=== PATIENT | male | born 1935 | race Caucasian/White ===

== ENCOUNTER 2017-10-09 10:06 | Emergency (ER) | payer OTHER ==
[2017-10-09 10:13] VITALS: RESP 18
--- NOTE | 2017-10-09 10:24 | CPEKG ---
Heart Rate: 85 RR Interval: 706 P-R Interval: 176 QRSD Interval: 80 QT Interval: 336 QTC Interval: 400 P [place]: -10 QRS [place]: -27 T Wave [place]: 47 EKG Severity - ABNORMAL ECG - EKG Impression: SINUS RHYTHM EKG Impression: PROBABLE INFERIOR INFARCT, OLD Electronically Signed By: Alaina Mcdaniels 09-Oct-2017 14:37:31
[2017-10-09 10:33] LABS: % IMMATURE GRANULYOCYTES 0.3 % (0.0-1.1); ABSOLUTE IMMATURE GRANULOCYTES 0.02 10^3/uL (0.00-0.10); ADD DIFF? NO; ADD MORPH? NO; ADD SCAN? NO; ATYPICAL LYMPHOCYTE FLAG 0 (0-99); FRAGMENT RBC FLAG 0 (0-99); HEMATOCRIT 52.2 % (40.0-51.0); HEMOGLOBIN 17.8 g/dL (13.7-17.5); LEFT SHIFT FLG 0 (0-99); LIPEMIA HEMOLYSIS FLAG 90 (0-99); MEAN CELL HEMOGLOBIN 31.7 pg (27.9-34.1); MEAN CELL HEMOGLOBIN CONCENTR. 34.1 g/dL (32.4-36.7); MEAN PLATELET VOLUME 9.2 fL (8.7-11.7); PLATELET CLUMPS FLAG 0 (0-99); PLATELET COUNT 135 10^3/uL (150-400); RED BLOOD CELL COUNT 5.61 10^6/uL (4.40-6.38); RED CELL DISTRIBUTION WIDTH 13.1 % (11.5-15.2)
--- NOTE | 2017-10-09 10:38 | EDPHY ---
H & P Time Seen by Provider: 10/09/17 10:14 HPI/ROS: CHIEF COMPLAINT: Left shoulder pain, shortness of breath HISTORY OF PRESENT ILLNESS: 82-year-old male with a history of diabetes and factor 5 Leiden deficiency, on Coumadin, presents with left shoulder pain and shortness of breath. Onset of left shoulder pain 2 days ago. The shoulder pain is described as an achy sensation and has been persistent. The pain does not increase with exertion or with range of motion of the left shoulder. Associated with shortness of breath and a dry cough. The SOB is mild, but noticable. He lives [place] [address] and has continued to do his usual activities, including chopping wood and shoveling snow, without change in SOB. The cough is frequent and dry; no sore throat, congestion or fever. No chest pain, swelling in legs or recent illness. No prior known cardiac disease. REVIEW OF SYSTEMS: Constitutional: No fever, no chills Eyes: No visual changes ENT: No sore throat Cardiac: No chest pain Gastrointestinal: no vomiting, no abdominal pain Genitourinary: no dysuria Musculoskeletal: No leg pain or swelling Skin: No rash Neurological: No headache, no weakness Psychiatric: No depression Past Medical/Surgical History: Diabetes Factor 5 Leiden deficiency [place] Social History: Lives at [address] Smoking Status: Never smoked Physical Exam: General Appearance: Alert, pleasant Eyes: Pupils equal and round, no conjunctival pallor or injection ENT, Mouth: Mucous membranes moist Neck: Normal inspection, no tenderness, range of motion without pain Respiratory: normal respiratory rate, frequent cough, lungs are clear to auscultation Cardiovascular: Regular rate and rhythm Gastrointestinal: Abdomen is soft and nontender Neurological: A&O, nonfocal exam Skin: Warm and dry, no rash Extremities: Dragan hose in place, no calf tenderness; left shoulder-normal inspection, tender over the proximal shoulder, range of motion without pain Vascular: 2+ radial pulses, capillary refill brisk Psychiatric: Mood and affect normal Constitutional: Initial Vital Signs Temperature (C) 36.6 C 10/09/17 10:10 Heart Rate 87 10/09/17 10:10 Respiratory Rate 18 10/09/17 10:10 Blood Pressure 143/82 H 10/09/17 10:10 O2 Sat (%) 92 10/09/17 10:10 O2 Delivery Mode Room Air Allergies/Adverse Reactions: No Known Allergies Allergy (Unverified 10/09/17 10:07) Home Medications: Medication Instructions Recorded Glimepiride 10/09/17 Levitra 10/09/17 Levothyroxine 10/09/17 Metformin 1000 mg 10/09/17 SIMVASTATIN 10/09/17 Tamsulosin HCl 10/09/17 Vitamin D3 (*) 10/09/17 Warfarin Sodium 10/09/17 Medical Decision Making - Diagnostics EKG Interpretation: EKG interpreted by me reveals normal sinus rhythm, rate 85, no ST or T segment changes. Imaging Results: CT pulmonary angiogram read by the radiologist reveals no evidence of pulmonary embolism or pneumonia. ED Course/Re-evaluation: This patient presents with left shoulder pain, shortness of breath and cough. Stat EKG reveals no evidence of ischemia or dysrhythmia. Clinical presentation concerning for recurrent pulmonary embolism. I doubt acute coronary syndrome, given and atypical prolonged symptoms. CT pulmonary angiogram ordered. CT results and x-ray discussed with the patient. There is no evidence of pneumonia or pulmonary embolism. He refuses admission. He states that he was able to chop wood yesterday and it did not cause shortness of breath and did not change the left shoulder pain. He will follow up with his primary care physician, Dr. Barreto. He will talk with Dr. Barreto this afternoon about increasing his coumadin. Differential Diagnosis: Differential diagnosis includes though it is not limited to pneumonia, pneumothorax, pulmonary embolism, aortic dissection, pericarditis, acute coronary syndrome. - Data Points Laboratory Results: Laboratory Results 10/09/17 10:25 10/09/17 10:25 Medications Given: Discontinued Medications Sodium Chloride (Ns) 500 mls @ 1,000 mls/hr IV EDNOW ONE PRN Reason: Protocol Stop: 10/09/17 11:35 Last Admin: 10/09/17 11:09 Dose: 500 mls Departure - Departure Disposition: Home, Routine, Self-Care Clinical Impression: Left shoulder pain, Dyspnea, Acute bronchitis Condition: Good Instructions: Acute Bronchitis (ED), Shoulder Pain (ED) Additional Instructions: Take Tylenol 650 mg every 4 hr as needed for shoulder pain. Call Dr. Barreto this afternoon to discuss your Coumadin dosing. Return for worsening symptoms or any concerns. Referrals: Malachi Barreto MD [Primary Care Provider] - As per Instructions
[2017-10-09 10:44] LABS: ANION GAP 15 mEq/L (8-16); CALCIUM 9.5 mg/dL (8.5-10.4); CARBON DIOXIDE 22 mEq/l (22-31); CHLORIDE 108 mEq/L (97-110); CREATININE 1.2 mg/dL (0.7-1.3); GLOMERULAR FILTRATION RATE 58; GLUCOSE 130 mg/dL (70-100); POTASSIUM 4.8 mEq/L (3.5-5.2); SODIUM 145 mEq/L (134-144)
[2017-10-09 10:50] LABS: INR 1.89 (0.83-1.16); PROTIME(PATIENT) 21.8 SEC (12.0-15.0)
[2017-10-09 10:56] LABS: TROPONIN I < 0.012 ng/mL (0.000-0.034)
[2017-10-09] MEDS ORDERED: IOPAMIDOL (ISOVUE 370) 100 ML BTL IV ONE (11:01)
[2017-10-09] MEDS ORDERED: NS 500 ML IV ONE (11:06)
[2017-10-09 12:48] VITALS: TEMP 98.4
[2017-10-09 12:49] VITALS: BP 127/84; PULSE 78; O2SAT 95
== END 2017-10-09 12:49 | disposition home or self-care (01) ==
DX: M25.512 Pain in left shoulder (principal); J20.9 Acute bronchitis, unspecified; E11.9 Type 2 diabetes mellitus without complications; E86.9 Volume depletion, unspecified; Z79.01 Long term (current) use of anticoagulants; Z79.84 Long term (current) use of oral hypoglycemic drugs
CPT/HCPCS: Q9967